=== PATIENT | male | born 1940 | race American Indian/Alaskan Native ===

== ENCOUNTER 2024-11-20 18:41 | Emergency (ER) | payer MEDICARE, SELFPAY ==
[2024-11-20 18:54] VITALS: BP 114/55; RESP 12; TEMP 36.6; BMI 21.5
--- NOTE | 2024-11-20 19:05 | DI.RAD.S_ITS ---
PROCEDURE: XR CHEST 1V INDICATIONS: short of breath, upper respiratory symptoms TECHNIQUE: One view of the chest was acquired. COMPARISON: None. FINDINGS: Surgical changes and devices: None. Lungs and pleura: Lungs are clear. No pleural effusions or pneumothorax. Mediastinum: Mediastinal contours appear normal. Heart size is normal. Bones and chest wall: No suspicious bony lesions. Overlying soft tissues appear unremarkable. IMPRESSION: No acute cardiopulmonary abnormality is seen. Approved by: Cherry Garcia M.D.,Ph.D. on 11/20/2024 at 20:32
--- NOTE | 2024-11-20 19:05 | EKG_ITS ---
[facility] [address] [place] [address] Test Date: 2024-11-20 Pat Name: Yadiel Martinez Department: [facility] Room: Gender: Male [employer] Machine: : [id number] Requested By: Order Number: [id number] Reading MD: Neto Alcantar Measurements Intervals [place] Rate: 92 P: CA: 106 QRS: 29 QRSD: 72 T: 73 QT: 356 QTc: 440 Interpretive Statements Sinus rhythm with short CA Nonspecific ST abnormality Electronically Signed On 11-26-2024 23:41:32 PST by Neto Alcantar
[2024-11-20 19:42] LABS: Hematocrit 26.4 % (41-53); Hemoglobin 8.4 g/dL (13.5-17.5); Mean Corpuscular HGB Conc 31.8 % (30-36); Mean Corpuscular Hemoglobin 30.3 PG (26-34); Mean Corpuscular Volume 95.2 fL (80-100); Platelet Count 112 X10^3/uL (150-400); Red Blood Cell Count 2.78 X10^6/uL (4.5-5.9); Red Cell Distribution Width 15.9 % (11.6-14.8)
[2024-11-20 19:43] LABS: Add Manual Diff / Slide Review YES
[2024-11-20 19:45] LABS: White Blood Cell Count 51.4 X10^3/uL (4.5-11.0)
[2024-11-20 19:51] LABS: Ammonia (NH3) < 9 umol/L (9-30)
[2024-11-20 19:52] LABS: Alanine Aminotransferase 41 IU/L (<50); Albumin 4.6 g/dL (3.5-5.0); Albumin Globulin Ratio 1.3 (1.0-2.8); Alkaline Phosphatase 131 U/L (38-126); Aspartate Aminotransferase 117 IU/L (17-59); BUN Creatinine Ratio 18.3 (6-22); Bilirubin Total 0.9 mg/dL (0.2-1.3); Blood Urea Nitrogen 43 mg/dL (9-20); Calcium 8.9 mg/dL (8.4-10.2); Carbon Dioxide 19 mmol/L (22-32); Chloride 106 mmol/L (98-107); Estimated Glomerular Filt Rate 26 mL/min (>60); Globulin 3.6 g/dL (1.7-4.1); Glucose 132 mg/dL (80-110); HEMOLYSIS < 15 (0-50); Potassium 4.3 mmol/L (3.4-5.1); Sodium 140 mmol/L (137-145); Total Protein 8.2 g/dL (6.3-8.2)
[2024-11-20 20:12] LABS: Neutrophils Absolute Manual 4626 /uL (3000-5900); Total Cells Counted 100
[2024-11-20 20:13] LABS: Platelet Estimate Decreased on smear
[2024-11-20 20:14] LABS: RBC Morphology Normal Morphology
[2024-11-20 20:18] LABS: Influenza A - CEPHEID Flu A POSITIVE (NEGATIVE); Influenza B - CEPHEID Flu B NEGATIVE (NEGATIVE); Respiratory Syncytial Virus Negative (Negative)
[2024-11-20 20:37] LABS: COVID-19 CEPHEID 4-PLEX PCR Negative (Negative)
--- NOTE | 2024-11-20 22:00 | ED.WEAKNESS ---
HPI - Weakness General Chief complaint: Weakness Stated complaint: sent by clinic r/o TIA Time Seen by Provider: 11/20/24 19:14 Source: patient Mode of arrival: Ambulatory History of Present Illness HPI Narrative: 84-year-old male with a history of recently diagnosed lymphoma, currently not on chemo or radiation, CKD presents for evaluation of possible TIA. Patient is somewhat poor historian, supplemental history obtained from family at bedside. Patient states that he has felt generally weak for the last several days. He was recently diagnosed with influenza and started on Tamiflu by his primary clinic. Earlier today the patient states that he lost control of his body and fell to the ground. He initially was unable to get up and so he called for his family. At the [facility] they were concerned that patient may have suffered a TIA and told him to come in for evaluation. Patient reports feeling ?wobbly?, but also states that this has been ongoing for several months and isn't worse today than usual. Patient states that he felt generally weak. Related Data Home Medications Medication Instructions Recorded Confirmed ALLOPURINOL (#LOPURIN) 100 mg PO QDAY ##0 12/01/11 CYANOCOBALAMIN/FOLIC ACID (FOLIC + 1 tab PO ##0 12/01/11 B12 1MG/0.8MG) Allergies Allergy/AdvReac Type Severity Reaction Status Date / Time INGREDIENT: NDA - NO KNOWN Allergy Unknown Uncoded 01/30/18 12:57 DRUG ALLERGIES Patient History Social History Smoking Status: Never smoker Smoking Status: Never smoker Exam Initial Vital Signs Initial Vital Signs: Vital Signs Temperature 97.8 F 11/20/24 18:54 Respiratory Rate 12 11/20/24 18:54 Blood Pressure 114/55 L 11/20/24 18:54 Const: Awake, alert, frail, appears chronically unwell Cardiac: regular rate, regular rhythm RESP: unlabored, clear bilaterally, no wheezing GI: Soft, nontender, nondistended MSK: Atraumatic, full range of motion, pulses equal Skin: Warm, Dry, intact, no rashes Neuro: AO x3, CN II-XII grossly intact, NIH 0, no ataxia, no numbness, no focal weakness Course Orders Ordered: ED Orders 11/20/24 19:04 Covid-19 + FLU A/B + RSV - PCR Stat 11/20/24 19:05 XR chest 1V Stat EKG-12 Lead Stat 11/20/24 19:30 Ammonia (NH3) Stat Complete Blood Count AUTO DIFF Stat Comprehensive Metabolic Panel Stat Pathologist Review (for CBC) Stat 11/20/24 21:59 CT head/brain wo con Stat 11/20/24 23:46 BMP [Basic Metabolic Panel] Stat Discontinued Medications Sodium Chloride (Normal Saline 0.9%) 1,000 mls @ 1,000 mls/hr IV BOLUS ONE Stop: 11/20/24 22:58 Last Infusion: 11/20/24 23:48 Dose: Infused Documented By: Admin: 11/20/24 22:05 Dose: 1,000 mls/hr Documented By: KATRINA Vital Signs Vital signs: Vital Signs - 8 hr 11/20/24 22:11 11/21/24 00:20 Pulse Rate 94 H 85 Respiratory Rate 14 22 Blood Pressure 131/61 121/56 L Pulse Oximetry 98 100 MDM - Weakness Lab Data 11/20/24 19:30 11/20/24 23:46 Labs: Lab Results 11/20/24 11/20/24 11/20/24 Range/Units 19:04 19:30 23:46 WBC 51.4 H* (4.5-11.0) X10^3/uL RBC 2.78 L (4.5-5.9) X10^6/uL Hgb 8.4 L (13.5-17.5) g/dL Hct 26.4 L (41-53) % MCV 95.2 (80-100) fL MCH 30.3 (26-34) PG MCHC 31.8 (30-36) % RDW 15.9 H (11.6-14.8) % Plt Count 112 L (150-400) X10^3/uL Neut % (Auto) Not Reportable Lymph % (Auto) Not Reportable Emanuel % (Auto) Not Reportable Eos % (Auto) Not Reportable Baso % (Auto) Not Reportable Lymph # (Auto) Not Reportable Emanuel # (Auto) Not Reportable Baso # (Auto) Not Reportable Total Counted 100 Seg Neutrophils % 9.0 L (38-70) % Lymphocytes % (Manual) 27.0 (25-45) % Atypical Lymphs % 56.0 H ( - 0) % Blast Cells % 8.0 H (-0) % Neutrophils # (Manual) 4626 (7614-4120) /uL Platelet Estimate Decreased on smear RBC Morphology Normal morphology Sodium 140 137 (137-145) mmol/L Potassium 4.3 3.9 (3.4-5.1) mmol/L Chloride 106 109 H (98-107) mmol/L Carbon Dioxide 19 L 20 L (22-32) mmol/L BUN 43 H 43 H (9-20) mg/dL Creatinine 2.35 H 2.02 H (0.66-1.25) mg/dL Estimated GFR 26 L 32 L (>60) mL/min BUN/Creatinine Ratio 18.3 21.3 (6-22) Glucose 132 H 139 H (80-110) mg/dL Calcium 8.9 8.2 L (8.4-10.2) mg/dL Total Bilirubin 0.9 (0.2-1.3) mg/dL AST 117 H (17-59) IU/L ALT 41 (<50) IU/L Alkaline Phosphatase 131 H (38-126) U/L Ammonia < 9 L (9-30) umol/L Total Protein 8.2 (6.3-8.2) g/dL Albumin 4.6 (3.5-5.0) g/dL Globulin 3.6 (1.7-4.1) g/dL Albumin/Globulin Ratio 1.3 (1.0-2.8) SARS-CoV-2 (PCR) Negative (Negative) Influenza A (RT-PCR) Flu a positive H (NEGATIVE) Influenza B (RT-PCR) Flu b negative (NEGATIVE) RSV (PCR) Negative (Negative) Point of Care Testing Glucose POC [address] scan - head: Radiologist Impression: PROCEDURE: CT HEAD/BRAIN WO CON INDICATIONS: GLF TECHNIQUE: Noncontrast 4.5 mm thick angled axial sections acquired from the foramen magnum to the vertex, with coronal and sagittal reformats. For radiation dose reduction, the following was used: automated exposure control, adjustment of mA and/or kV according to patient size. COMPARISON: None. FINDINGS: Image quality: Diagnostic. CSF spaces: Basal cisterns are patent. No extra-axial fluid collections. The ventricles are symmetric in size and shape. Brain: No intracranial bleeds or masses. There is cerebral volume loss for age, with resultant ventricular and sulcal prominence. There are periventricular and deep white matter chronic small vessel ischemic changes. There is intracranial internal carotid artery atherosclerosis. Skull and face: Calvarium and visualized facial bones appear intact, without suspicious lesions. Sinuses: Visualized sinuses and mastoids are clear. IMPRESSION: No acute intracranial pathology. Approved by: Cherry Garcia M.D.,Ph.D. on 11/20/2024 at 23:36 Chest x-ray: Radiologist Impression: PROCEDURE: XR CHEST 1V INDICATIONS: short of breath, upper respiratory symptoms TECHNIQUE: One view of the chest was acquired. COMPARISON: None. FINDINGS: Surgical changes and devices: None. Lungs and pleura: Lungs are clear. No pleural effusions or pneumothorax. Mediastinum: Mediastinal contours appear normal. Heart size is normal. Bones and chest wall: No suspicious bony lesions. Overlying soft tissues appear unremarkable. IMPRESSION: No acute cardiopulmonary abnormality is seen. Approved by: Cherry Garcia M.D.,Ph.D. on 11/20/2024 at 20:32 [facility] Narrative Medical decision making narrative: Patient presents for evaluation of episode of weakness that caused the patient to fall. NIH 0 on exam. Patient's retesting of the event is less likely to be TIA rather than general metabolic process. Labs, CT imaging ordered. laboratory work shows WBC count 51.4, Hgb 8/4, platelet count 112, Sodium 140, potassium 4.3, creatinine 2.35, AST 117, ALT 41, Alk phos 131. We have no previous records in our system, however we were able to obtain outside laboratory work from [facility] showing WBC count 59.8, hemoglobin 8.3, creatinine 1.78. Family at bedside states that patient was not been eating or drinking very much, as he feels poorly and does not want to have to get out of bed to use the restroom. Patient given L of IVF and creatinine showed improvement. Patient was advised on the importance of staying hydrated, especially while fighting off the flu. He is working with a heme-onc doctor on starting chemo for his lymphoma. Patient able to ambulate well in the emergency department. Discharged home with family. Discharge Plan Departure Patient Disposition: Home Clinical Impression: Generalized weakness, Dehydration, Influenza A Instructions: DI for Dehydration -- Adult Activity Restrictions/Additional Instructions: Your labs today showed that you were dehydrated. Your kidney function back on 10/29 was 1.78. When we checked it initially it was 2.35. After a liter of IV fluids it improved to 2.02. It will be extremely important for you to stay hydrated at home. Drink at least 60 oz of water. Your urine should be a clear yellow. If you feel worse please come back to the emergency department for repeat evaluation, otherwise continue to follow up with your doctors for your lymphoma and kidney function. Prescriptions: No Action ALLOPURINOL (#LOPURIN) 100 mg PO QDAY Qty: 0 CYANOCOBALAMIN/FOLIC ACID (FOLIC + B12 1MG/0.8MG) 1 tab PO Qty: 0 Referrals: Miscellaneous,Doctor, MD [Primary Care Provider] - Stand Alone Forms: Patient Portal/API/Survey
[2024-11-20] MEDS: SODIUM CHLORIDE 0.9% 1,000 ML 1000 ML IV (22:05)
[2024-11-20 22:11] VITALS: BP 131/61; PULSE 94; RESP 14; O2SAT 98
[2024-11-21 00:05] LABS: BUN Creatinine Ratio 21.3 (6-22); Blood Urea Nitrogen 43 mg/dL (9-20); Calcium 8.2 mg/dL (8.4-10.2); Carbon Dioxide 20 mmol/L (22-32); Chloride 109 mmol/L (98-107); Estimated Glomerular Filt Rate 32 mL/min (>60); Glucose 139 mg/dL (80-110); HEMOLYSIS < 15 (0-50); Potassium 3.9 mmol/L (3.4-5.1); Sodium 137 mmol/L (137-145)
[2024-11-21 00:20] VITALS: BP 121/56; PULSE 85; RESP 22; O2SAT 100
== END 2024-11-21 00:48 | disposition home or self-care (01) ==
PROVIDERS: Emergency Provider Emergency Medicine
DX: R53.1 Weakness (principal); E86.0 Dehydration; J10.1 Influenza due to other identified influenza virus with other respiratory manifestations; C85.90 Non-Hodgkin lymphoma, unspecified, unspecified site; R41.82 Altered mental status, unspecified
CPT/HCPCS: 0241U; 36415; 70450; 71045; 80048; 80053; 82140; 82962; 85007; 85025; 93005; 96360; 96361; 99284

== ENCOUNTER → 2025-08-26 08:03 | Outpatient (CLI) | payer MEDICARE, OTHER, SELFPAY | PROVIDERS: PCP Registered Nurse; Visit Provider Surgery | DX: N30.41 Irradiation cystitis with hematuria (principal); R31.0 Gross hematuria; Z85.46 Personal history of malignant neoplasm of prostate; B20 Human immunodeficiency virus [HIV] disease | CPT/HCPCS: 99203; 99212 ==

== ENCOUNTER → 2025-08-28 09:53 | Outpatient (CLI) | payer MEDICARE, OTHER, SELFPAY | PROVIDERS: PCP Registered Nurse; Referring Provider Internal Medicine Hematology & Oncology; Visit Provider Physician Assistant | DX: N30.41 Irradiation cystitis with hematuria (principal); R31.0 Gross hematuria; V00-Y99 External causes of morbidity; Z85.46 Personal history of malignant neoplasm of prostate | CPT/HCPCS: 99183; G0277 ==

== ENCOUNTER → 2025-08-31 15:11 | Outpatient (CLI) | payer MEDICARE, OTHER, SELFPAY | PROVIDERS: PCP Registered Nurse; Visit Provider Surgery | DX: N30.41 Irradiation cystitis with hematuria (principal); R31.0 Gross hematuria; V00-Y99 External causes of morbidity; Z85.46 Personal history of malignant neoplasm of prostate | CPT/HCPCS: 99183; G0277 ==

== ENCOUNTER → 2025-09-11 12:53 | Outpatient (CLI) | payer MEDICARE, OTHER, SELFPAY | LOC: WC 12:58 | PROVIDERS: PCP Registered Nurse; Referring Provider Registered Nurse; Visit Provider Physician Assistant | DX: N30.41 Irradiation cystitis with hematuria (principal); R31.0 Gross hematuria; V00-Y99 External causes of morbidity; Z85.46 Personal history of malignant neoplasm of prostate | CPT/HCPCS: 99183; G0277 ==

== ENCOUNTER → 2025-09-14 13:17 | Outpatient (CLI) | payer MEDICARE, OTHER, SELFPAY | LOC: WC 13:18 | PROVIDERS: PCP Registered Nurse; Referring Provider Registered Nurse; Visit Provider Surgery | DX: N30.41 Irradiation cystitis with hematuria (principal); R31.0 Gross hematuria; V00-Y99 External causes of morbidity; Z85.46 Personal history of malignant neoplasm of prostate | CPT/HCPCS: 99183; G0277 ==

== ENCOUNTER → 2025-09-15 09:22 | Outpatient (CLI) | payer MEDICARE, OTHER, SELFPAY | LOC: WC 09:24 | PROVIDERS: PCP Registered Nurse; Referring Provider Registered Nurse; Visit Provider Surgery | DX: N30.41 Irradiation cystitis with hematuria (principal); R31.0 Gross hematuria; V00-Y99 External causes of morbidity; Z85.46 Personal history of malignant neoplasm of prostate | CPT/HCPCS: 99183; G0277 ==

== ENCOUNTER → 2025-09-16 10:38 | Outpatient (CLI) | payer MEDICARE, OTHER, SELFPAY | LOC: WC 10:40 | PROVIDERS: PCP Registered Nurse; Referring Provider Registered Nurse; Visit Provider Nurse Practitioner Family | DX: N30.41 Irradiation cystitis with hematuria (principal); R31.0 Gross hematuria; V00-Y99 External causes of morbidity; Z85.46 Personal history of malignant neoplasm of prostate | CPT/HCPCS: 99183; G0277 ==

== ENCOUNTER → 2025-09-21 11:36 | Outpatient (CLI) | payer MEDICARE, OTHER, SELFPAY | LOC: WC 11:38 | PROVIDERS: PCP Registered Nurse; Referring Provider Registered Nurse; Visit Provider Surgery | DX: N30.41 Irradiation cystitis with hematuria (principal); R31.0 Gross hematuria; Z85.46 Personal history of malignant neoplasm of prostate | CPT/HCPCS: 99183; G0277 ==

== ENCOUNTER → 2025-09-22 13:48 | Outpatient (CLI) | payer MEDICARE, OTHER, SELFPAY | LOC: WC 14:36 | PROVIDERS: PCP Registered Nurse; Referring Provider Registered Nurse; Visit Provider Surgery | DX: N30.41 Irradiation cystitis with hematuria (principal); R31.0 Gross hematuria; Z85.46 Personal history of malignant neoplasm of prostate | CPT/HCPCS: 99183; G0277 ==

== ENCOUNTER → 2025-09-24 13:36 | Outpatient (CLI) | payer MEDICARE, OTHER, SELFPAY | LOC: WC 13:44 | PROVIDERS: PCP Registered Nurse; Referring Provider Registered Nurse; Visit Provider Surgery | DX: N30.41 Irradiation cystitis with hematuria (principal); R31.0 Gross hematuria; V00-Y99 External causes of morbidity; Z85.46 Personal history of malignant neoplasm of prostate | CPT/HCPCS: 99183; G0277 ==

== ENCOUNTER → 2025-09-25 10:54 | Outpatient (CLI) | payer MEDICARE, OTHER, SELFPAY | LOC: WC 10:55 | PROVIDERS: PCP Registered Nurse; Referring Provider Registered Nurse; Visit Provider Physician Assistant | DX: N30.41 Irradiation cystitis with hematuria (principal); R31.0 Gross hematuria; V00-Y99 External causes of morbidity; Z85.46 Personal history of malignant neoplasm of prostate | CPT/HCPCS: 99183; G0277 ==

== ENCOUNTER → 2025-09-28 09:25 | Outpatient (CLI) | payer MEDICARE, OTHER, SELFPAY | LOC: WC 09:29 | PROVIDERS: PCP Registered Nurse; Referring Provider Registered Nurse; Visit Provider Surgery | DX: N30.41 Irradiation cystitis with hematuria (principal); R31.0 Gross hematuria; V00-Y99 External causes of morbidity; Z85.46 Personal history of malignant neoplasm of prostate | CPT/HCPCS: 99183; G0277 ==

== ENCOUNTER → 2025-09-29 10:07 | Outpatient (CLI) | payer MEDICARE, OTHER, SELFPAY | LOC: WC 10:09 | PROVIDERS: PCP Registered Nurse; Referring Provider Registered Nurse; Visit Provider Surgery | DX: N30.41 Irradiation cystitis with hematuria (principal); R31.0 Gross hematuria; V00-Y99 External causes of morbidity; Z85.46 Personal history of malignant neoplasm of prostate | CPT/HCPCS: 99183; G0277 ==

== ENCOUNTER → 2025-09-30 15:57 | Outpatient (CLI) | payer MEDICARE, OTHER, SELFPAY | LOC: WC 15:58 | PROVIDERS: PCP Registered Nurse; Referring Provider Registered Nurse; Visit Provider Surgery | DX: N30.41 Irradiation cystitis with hematuria (principal); R31.0 Gross hematuria; V00-Y99 External causes of morbidity; Z85.46 Personal history of malignant neoplasm of prostate | CPT/HCPCS: 99183; G0277 ==